=== PATIENT | female | born 1960 | race Two or more races ===

== ENCOUNTER 2024-10-04 19:10 | Emergency (ER) | payer MEDICARE, MEDICAID, SELFPAY ==
--- NOTE | 2024-10-04 19:44 | XR_ITS ---
Examination: CT abdomen with intravenous contrast CT pelvis with intravenous contrast 2-D coronal reconstructions 2-D sagittal reconstructions Date and time of exam:October 04, 2024 1047 hrs. Indications: Left lower abdominal pain beginning 2 days ago. CTDI: vol (mGy) 6.75 DLP: (mGycm) 322 Technique: Multiple axial sections of the abdomen and pelvis have been obtained. 64 slice high-resolution scanner used. 3 mm axial sections have been obtained, post intravenous injection 60 cc [id number] 2-D sagittal, coronal reconstructions obtained. Low dose protocols were performed. One or more of the following dose reduction techniques were used; automated exposure control, adjustment of the mA and/or KV according to patient size, use of iterative reconstruction technique. Findings: No focal liver or splenic lesions Contracted gallbladder Common bile duct 7 mm No pancreatic mass Abdominal aortic calcification no aneurysmal dilatation Significant scarring right kidney, no hydronephrosis or ureteral calculi Multiple lymph nodes in the right lower mesentery Normal appendix No bowel obstruction No diverticulitis Anteverted uterus with multiple areas of small fibroid degeneration Bladder intact Moderate narrowing hip joints Impression: Contracted gallbladder Significant scarring right kidney, no hydronephrosis or ureteral calculi Multiple small lymph nodes in the right lower mesentery, normal appendix No bowel obstruction diverticulitis or free air
[2024-10-04 19:45] VITALS: BP 180/74; PULSE 81; RESP 18; TEMP 36.6; O2SAT 99
--- NOTE | 2024-10-04 19:45 | EDRME_ITS ---
Rapid Medical Screening Exam COUNT INCLUDES THE [facility] Arrival date/time: 10/04/24 19:10 Chief Complaint: Abdominal Pain Time Seen by Provider: 10/04/24 19:16 Vital signs: Vital Signs Temperature 98 F 10/04/24 19:45 Pulse Rate 81 10/04/24 19:45 Respiratory Rate 18 10/04/24 19:45 Blood Pressure 180/74 H 10/04/24 19:45 Pulse Oximetry (%) 99 10/04/24 19:45 Oxygen Delivery Method Room Air 10/04/24 19:45 COUNT INCLUDES THE [facility] Narrative: LLQ abdominal pain x 2 days. Denies fever, N/V or urinary symptoms.
[2024-10-04 20:09] LABS: Collection Type, Urine Clean Catch; Squamous Epithelial Cell,Urine 0 /hpf (0-5)
[2024-10-04 20:15] LABS: Bilirubin,Urine Negative (Negative); Blood,Urine Negative (Negative); Clarity,Urine Clear (Clear/Hazy); Color,Urine Colorless (Lt Yel-Yel); Glucose, Urine Negative (Negative); Ketones,Urine Negative (Negative); Leukocyte Esterase,Urine Negative (Negative); Nitrite,Urine Negative (Negative); Protein,Urine Negative (Neg - Trace); RBC,Urine < 1 /hpf (0-3); Specific Gravity,Urine 1.008 (1.001-1.035); Urobilinogen,Urine Negative mg/dL (0.0-1.0); WBC,Urine 2 /hpf (0-5)
[2024-10-04 21:05] LABS: Basophils # (Auto) 0.1 Thou/mm3 (0.0-0.2); Basophils % (Auto) 1 % (0-2.5); Eosinophils # (Auto) 0.2 Thou/mm3 (0.0-0.5); Eosinophils % (Auto) 2 % (0-10); Hematocrit 36.5 % (36.0-46.0); Immature Granulocytes % (Auto) 0 % (0-0); Immature Granulocytes Auto 0.02 Thou/mm3 (0.00-0.00); Lymphocytes # (Auto) 3.4 Thou/mm3 (1.0-4.8); Lymphocytes % (Auto) 41 % (10-50); Mean Corpuscular HGB Conc 32.9 g/dl (31.0-37.0); Mean Corpuscular Hemoglobin 24.9 pg (25.0-35.0); Mean Corpuscular Volume 76 fL (80-100); Monocytes # (Auto) 0.7 Thou/mm3 (0.0-0.8); Monocytes % (Auto) 9 % (0-12); Neutrophils % (Auto) 48 % (37-80); Nucleated Red Blood Cell % 0 /100 WBC (0); Platelet Count 335 Thou/mm3 (140-440); RDW Standard Deviation 39.8 fL (36.4-46.3); Red Blood Count 4.82 Miln/mm3 (4.00-5.20); White Blood Count 8.4 Thou/mm3 (3.6-11.0)
[2024-10-04 21:23] LABS: Alanine Aminotransferase 14 U/L (10-49); Albumin, Serum 4.6 gm/dL (3.4-4.8); Albumin/Globulin Ratio 1.5 (1.2-2.2); Alkaline Phosphatase 187 U/L (46-116); Anion Gap 8 (7-16); Aspartate Amino Transferase 15 U/L (0-34); BUN/Creatinine Ratio 16 Ratio (12-20); Bilirubin,Total 0.3 mg/dL (0.3-1.2); Blood Urea Nitrogen 14 mg/dL (9-23); Calcium 9.4 mg/dL (8.3-10.6); Calcium (Corrected) 9.4 mg/dL (8.5-10.1); Carbon Dioxide 26.3 mMol/L (20.0-31.0); Chloride 106 mMol/L (98-107); Creatinine (Component) 0.9 mg/dL (0.6-1.3); Glucose 132 mg/dL (74-106); Lipase 48 U/L (12-53); Osmolality,Calculated 281 (275-295); Potassium 3.6 mMol/L (3.4-5.1); Sodium 140 mMol/L (136-145); Total Protein 7.6 gm/dL (5.7-8.2); eGFR > 60 See Note
--- NOTE | 2024-10-05 00:17 | PD.EDABDPN ---
ED Abdominal Pain RME/HPI General Chief Complaint: Abdominal Pain Stated complaint: ABD PAIN Time seen by provider: 10/04/24 19:16 Arrival date/time: 10/04/24 19:10 Source: patient, RN notes reviewed and old records reviewed Mode of arrival: ambulatory Limitations: no limitations RME / HPI RME / HPI narrative: 64yof presents to ED for LLQ abdominal pain x2 days. No fever, N/V/D or urinary symptoms reported. No medications or treatment since symptom onset. Related Data Home Medications ?Medication ?Instructions ?Recorded ?Confirmed metformin 1,000 mg tablet 1,000 mg PO QDAY 12/19/23 06/28/24 amlodipine 10 mg tablet 10 mg PO QDAY 06/06/24 06/28/24 Previous Rx's ?Medication ?Instructions ?Recorded atorvastatin 20 mg tablet 20 mg PO QHS inrease #90 tabs 01/18/24 levothyroxine 112 mcg tablet 112 mcg PO QDAY #90 tabs 05/23/24 (Synthroid) blood sugar diagnostic (FreeStyle #100 ea 06/28/24 Test strips) acetaminophen 500 mg tablet 1,000 mg (2 x 500 mg) PO Q6H PRN 10/05/24 (Tylenol Extra Strength) pain #30 tabs dicyclomine 20 mg tablet 20 mg PO Q6HR PRN abdominal pain 10/05/24 #30 tabs ibuprofen 600 mg tablet 600 mg PO Q6H PRN pain #30 tabs 10/05/24 Allergies Allergy/AdvReac Type Severity Reaction Status Date / Time No Known Allergies Allergy Verified 10/04/24 19:12 Review of Systems Review of Systems Systems Reviewed: All systems reviewed, normal except as documented Constitutional Constitutional: Denies chills and Denies fever(s) ENT Ears, Nose, Mouth, and Throat: Denies dizziness Gastrointestinal Gastrointestinal: Reports abdominal pain, Denies loose stools, Denies nausea and Denies vomiting Genitourinary Genitourinary: Denies dysuria, Denies flank pain and Denies hematuria Neurologic Neurologic: Denies dizziness Past Medical History Past Medical History CARDIAC: Positive Hypertension ENDOCRINE: Positive Diabetes Mellitus Type 2 and Hypothyroidism Surgical History OTHER SURGICAL HX: Denies past surgical history Social History SMOKING STATUS: Never smoker SUBSTANCE USE: does not use ALCOHOL: Never ED Exam General Limitations: Present no limitations General appearance: Present alert and in no apparent distress Head Head exam: Present atraumatic and normocephalic Eye Eye exam: Present normal appearance, PERRL and EOMI ENT ENT exam: Present normal exam and mucous membranes moist Neck Neck exam: Present normal inspection and full ROM Chest Chest inspection: Present normal inspection and symmetric chest wall rise Respiratory Respiratory exam: Present normal lung sounds bilaterally; Absent respiratory distress Cardiovascular Cardiovascular exam: Present regular rate and normal rhythm Abdominal Exam Abdominal exam: Present soft and tenderness (LLQ, mild); Absent distention, guarding or rebound Extremities Exam Extremities exam: Present normal inspection and full ROM Back Exam Back exam: Absent CVA tenderness (R) or CVA tenderness (L) Neurological Exam Neurological exam: Present alert and oriented X3 Psychiatric Psychiatric exam: Present normal affect and normal mood Skin Skin exam: Present warm, dry, intact and normal color Course Quality Measures none Orders Category Date Time Status CT Screening NOW Care 10/04/24 19:[address] abdomen pelvis w con Stat Exams 10/04/24 19:44 Completed CBC Stat Lab 10/04/24 20:26 Completed CMP [Comprehensive Metabolic Panel] Stat Lab 10/04/24 20:26 Completed Lipase Stat Lab 10/04/24 20:26 Completed UA [Urinalysis] Stat Lab 10/04/24 20:01 Completed Vital Signs Vital signs: Vital Signs Temperature 98 F 10/04/24 19:45 Pulse Rate 81 10/04/24 19:45 Respiratory Rate 18 10/04/24 19:45 Blood Pressure 180/74 H 10/04/24 19:45 Pulse Oximetry (%) 99 10/04/24 19:45 Oxygen Delivery Method Room Air 10/04/24 19:45 Abdominal Pain MDM MDM Narrative MDM Narrative:: 64yof presents to ED for LLQ abdominal pain x2 days. No fever, N/V/D or urinary symptoms reported. No medications or treatment since symptom onset. ED workup reassuring. Patient is nontoxic-appearing, afebrile, vitals are stable. Nonsurgical abdomen on exam. Encouraged rest, fluids, symptomatic treatment prn. Stable for discharge, RTED precautions given. Patient data External records reviewed:: [facility] previous records (06/06/2024 doctors office visit for pap smear) Clinical information provided by:: patient Social determinants that could affect healthcare access:: none Patient has the following chronic illnesses:: DM, hypertension How is presenting disease/condition affected by chronic disease/condition?: exacerbated by Evaluation data The following diagnostics were reviewed and interpreted by me:: lab results and radiology exam(s) Lab and/or radiology exams considered but not ordered:: None Interpretation Summary: No leukocytosis UA negative CT abdomen/pelvis: Impression: Contracted gallbladder Significant scarring right kidney, no hydronephrosis or ureteral calculi Multiple small lymph nodes in the right lower mesentery, normal appendix No bowel obstruction diverticulitis or free air Dictated By: Zion Burrell MD Medications / Prescriptions Medications or Prescriptions considered but not ordered:: No antibiotics recommended at this time Medication administrations:: None Consultations Consultation(s) initiated? (list below): No Diagnosis Differential diagnosis abdominal pain: abdominal pain, calculus of kidney, constipation, diverticulitis, gastroenteritis and small bowel obstruction Most likely diagnosis given after review of the tests above:: Nonspecific abdominal pain Admission Indicated Admission indicated?: not indicated Admission Request Was there a request for admission?: No Disposition Plan Disposition Plan: Discharge Discharge Attestation Discharge Attestation: The patient and all family members were given an opportunity to ask questions and understood the discharge instructions. Discharge instructions specifically effects, indications for sooner follow up or return to the emergency department, and the expected course of current diagnosis. Patient condition: Stable Discharge Plan Plan Patient Disposition: HOME (Self Care) Patient condition on transfer: Stable Prescriptions/Referrals Prescriptions/Med Rec: New ibuprofen 600 mg tablet 600 mg PO Q6H PRN (Reason: pain) Qty: 30 0RF acetaminophen [Tylenol Extra Strength] 500 mg tablet 1,000 mg PO Q6H PRN (Reason: pain) Qty: 30 0RF dicyclomine 20 mg tablet 20 mg PO Q6HR PRN (Reason: abdominal pain) Qty: 30 0RF No Action levothyroxine [Synthroid] 112 mcg tablet 112 mcg PO QDAY Qty: 90 1RF metformin 1,000 mg tablet 1,000 mg PO QDAY atorvastatin 20 mg tablet 20 mg PO QHS Qty: 90 1RF amlodipine 10 mg tablet 10 mg PO QDAY (DME) FreeStyle Test Strip See Rx Instructions .Route Qty: 100 1RF Rx Instructions: check blood sugar once a day every day Referrals: Tom ([facility]),DONNA Leggett [Primary Care Provider] - In 1 week Problem List Clinical Impression: Abdominal pain Patient/Caregiver Discharge Instructions Education Materials: Abdominal Pain Print Language: Estonian Stand Alone Forms: Kristin Award Info., Patient Portal Info Letter PA/WIND DEVELOPMENT DIRECTOR Supervising Physician PA/WIND DEVELOPMENT DIRECTOR Supervising Physician: Duarte
[2024-10-05 00:35] VITALS: RESP 18
== END 2024-10-05 00:36 | disposition home or self-care (01) ==
PROVIDERS: Physician Assistant; Emergency Provider Emergency Medicine; PCP Nurse Practitioner Primary Care
DX: R10.32 Left lower quadrant pain (principal)
CPT/HCPCS: 36415; 74177; 80053; 81001; 83690; 85025; 99285; A4649; Q9967

== ENCOUNTER 2024-11-15 08:15 | Day surgery (SDC) | payer MEDICARE, MEDICAID, SELFPAY ==
[2024-11-15] VITALS (9 sets, daily range): BP systolic 131–172; BP diastolic 64–93; PULSE 64–101; RESP 12–20; TEMP 36.2–36.8; O2SAT 94–100; BMI 25.2
[2024-11-15] MEDS: DiphenhydrAMINE INJ 50 MG/ML VIAL 25 MG IV (09:48)
[2024-11-15] MEDS: fentaNYL CIT INJ 50 mCg/ML AMP 2ML (ASD USE ONLY) IV (09:51)
[2024-11-15] MEDS: MIDAZOLAM INJ 1 MG/ML VIAL 2 ML (ASD USE ONLY) 2 MG IV (09:51)
[2024-11-15] MEDS: SODIUM CHLORIDE 0.9% 500 ML 500 ML 20 ML IV (10:01)
== END 2024-11-15 11:15 | disposition home or self-care (01) ==
PROVIDERS: PCP Nurse Practitioner Primary Care; Referring Provider Internal Medicine Gastroenterology; Visit Provider Internal Medicine Gastroenterology
PROC: 0DBE8ZX Excision of Large Intestine, Via Natural or Artificial Opening Endoscopic, Diagnostic (ICD-10-PCS; CPT 45380; principal; 2024-11-15 13:45)
DX: Z12.11 Encounter for screening for malignant neoplasm of colon (principal); K52.9 Noninfective gastroenteritis and colitis, unspecified; K64.8 Other hemorrhoids; K57.30 Diverticulosis of large intestine without perforation or abscess without bleeding
CPT/HCPCS: 45380; A4649; J1200; J2250; J3010; J7040

== ENCOUNTER → 2024-11-30 | Outpatient (BNVA) | payer MEDICARE, MEDICAID, SELFPAY | END | disposition home or self-care (01) | PROVIDERS: PCP Nurse Practitioner Primary Care; Referring Provider Nurse Practitioner Primary Care; Visit Provider Nurse Practitioner Primary Care | DX: E11.9 Type 2 diabetes mellitus without complications (principal); E78.5 Hyperlipidemia, unspecified; Z71.2 Person consulting for explanation of examination or test findings; E03.9 Hypothyroidism, unspecified | CPT/HCPCS: 99212; G0463 ==

== ENCOUNTER → 2024-12-12 | Outpatient (BNVA) | payer MEDICARE, MEDICAID, SELFPAY | END | disposition home or self-care (01) | PROVIDERS: PCP Nurse Practitioner Primary Care; Referring Provider Nurse Practitioner Primary Care; Visit Provider Nurse Practitioner Primary Care | DX: E78.00 Pure hypercholesterolemia, unspecified (principal); I10 Essential (primary) hypertension; E11.9 Type 2 diabetes mellitus without complications; E03.9 Hypothyroidism, unspecified | CPT/HCPCS: 99213 ==

== ENCOUNTER → 2024-12-17 | Outpatient (BNVA) | payer MEDICARE, MEDICAID, SELFPAY | END | disposition home or self-care (01) | PROVIDERS: PCP Nurse Practitioner Primary Care; Referring Provider Nurse Practitioner Primary Care; Visit Provider Nurse Practitioner Primary Care | DX: E03.9 Hypothyroidism, unspecified (principal) | CPT/HCPCS: 99212; G0463 ==

== ENCOUNTER → 2025-01-01 | Outpatient (BNVA) | payer MEDICARE, MEDICAID, SELFPAY | END | disposition home or self-care (01) | PROVIDERS: PCP Nurse Practitioner Primary Care; Referring Provider Nurse Practitioner Primary Care; Visit Provider Nurse Practitioner Primary Care | DX: Z71.2 Person consulting for explanation of examination or test findings (principal) | CPT/HCPCS: 99213 ==

== ENCOUNTER → 2025-02-05 | Outpatient (BNVA) | payer MEDICARE, MEDICAID, SELFPAY | END | disposition home or self-care (01) | PROVIDERS: PCP Nurse Practitioner Primary Care; Referring Provider Nurse Practitioner Primary Care; Visit Provider Nurse Practitioner Primary Care | DX: Z00.01 Encounter for general adult medical examination with abnormal findings (principal); E03.9 Hypothyroidism, unspecified; I10 Essential (primary) hypertension; E11.9 Type 2 diabetes mellitus without complications; E55.9 Vitamin D deficiency, unspecified; Z13.820 Encounter for screening for osteoporosis; E78.5 Hyperlipidemia, unspecified | CPT/HCPCS: 93005; 99215 ==

== ENCOUNTER → 2025-04-11 | Outpatient (BNVA) | payer MEDICARE, MEDICAID, SELFPAY | END | disposition home or self-care (01) | PROVIDERS: PCP Nurse Practitioner Primary Care; Referring Provider Nurse Practitioner Primary Care; Visit Provider Nurse Practitioner Primary Care | DX: E03.9 Hypothyroidism, unspecified (principal); I10 Essential (primary) hypertension; E11.9 Type 2 diabetes mellitus without complications; E55.9 Vitamin D deficiency, unspecified; Z71.2 Person consulting for explanation of examination or test findings | CPT/HCPCS: 99212 ==

== ENCOUNTER → 2025-07-08 | Outpatient (BNVA) | payer MEDICARE, MEDICAID, SELFPAY | END | disposition home or self-care (01) | PROVIDERS: PCP Nurse Practitioner Primary Care; Referring Provider Nurse Practitioner Primary Care; Visit Provider Nurse Practitioner Primary Care | DX: E03.9 Hypothyroidism, unspecified (principal); I10 Essential (primary) hypertension; E11.9 Type 2 diabetes mellitus without complications; Z28.21 Immunization not carried out because of patient refusal | CPT/HCPCS: 83036; 99213 ==

== ENCOUNTER → 2025-08-08 | Outpatient (CLI) | payer MEDICARE, MEDICAID, SELFPAY ==
--- NOTE | 2025-08-08 13:35 | XR_ITS ---
Examination: Bone densitometry Date and time of exam: August 08, 2025, 1341 hours INDICATIONS: Postmenopausal 65-year-old female Technique: Lumbar spine and hip total bone mineralization values of an calculated. Peak reference and age match control results have been displayed. Findings: Lumbar spine total bone mineralization is 0.854 gm/cm2. This is 1.8 standard deviations below peak reference. This is 0.1 standard deviations below age-matched controls. Hip total bone mineralization is 0.832 gm/cm2 This is 1.0 standard deviations below peak reference. This is 0.2 standard deviations above age-matched controls Impression: There is osteopenia based on lumbar spine measurements. There is osteopenia based on hip measurements
== END | disposition home or self-care (01) ==
PROVIDERS: PCP Nurse Practitioner Primary Care; Referring Provider Nurse Practitioner Primary Care; Visit Provider Nurse Practitioner Primary Care
DX: Z13.820 Encounter for screening for osteoporosis (principal); M85.89 Other specified disorders of bone density and structure, multiple sites
CPT/HCPCS: 77080

== ENCOUNTER → 2025-08-16 | Outpatient (BNVA) | payer MEDICARE, MEDICAID, SELFPAY | END | disposition home or self-care (01) | PROVIDERS: PCP Nurse Practitioner Primary Care; Referring Provider Nurse Practitioner Primary Care; Visit Provider Nurse Practitioner Primary Care | DX: Z12.31 Encounter for screening mammogram for malignant neoplasm of breast (principal); M85.89 Other specified disorders of bone density and structure, multiple sites; Z28.21 Immunization not carried out because of patient refusal | CPT/HCPCS: 99213 ==